=== PATIENT | female | born 1960 | race Hispanic/Latino ===

== ENCOUNTER 2017-02-18 07:02 | Day surgery (SDC) | payer MEDICAID, OTHER ==
[2017-02-18 07:02] VITALS: BMI 47.0
--- NOTE | 2017-02-18 07:48 | C.PDOC ---
History Of Present Illness 57 y/o female with Hx of kidney stones presents to ED with complaints of Left groin pain since 429 and nausea/vomiting. Patient describes pain "like my kidney stones". Patient had a Right Renal STENT placed on 02/05/[address] Palak Oswald. Home medications were taken for pain with no relief. Patient denies fever or any other complaints at this time. RECUR L GROIN PAIN SINCE 429 "LIKE MY KIDNEY STONES". HO PRIOR KIDNEY STONES, R RENAL STENT PLACED 02/05 DR Palak OSWALD. +[place]. NO RELIEF W HOME RX. NO FEVER. EXAM MOD DIST NONTOXIC ABD PT REFUSING TO LAY SUPINE FOR EXAM. OBESE SOFT NT ND NO R/G REMAINDER NEG MDM PT REPORTS TO RN MORPHINE AND DILAUDID ALLERGY BUT RX LIST SHOWS PT ON DILAUDID AND MORPHINE TABS. ALSO TAKES ULTRACET WO DIFF DESPITE REPORTING TYLENOL ALLERGY. PS NORMALLY RECEIVES BENADRYL W MORPHINE. Time Seen by Provider: 02/18/17 07:19 Chief Complaint (Nursing): Back Pain History Per: Patient History/Exam Limitations: no limitations Onset/Duration Of Symptoms: Hrs Current Symptoms Are (Timing): Still Present Past Medical History Reviewed: Historical Data, Nursing Documentation, Vital Signs Vital Signs: Last Vital Signs Temp 97.3 F L 02/18/17 13:59 Pulse 79 02/18/17 14:15 Resp 18 02/18/17 14:15 BP 115/74 02/18/17 14:15 Pulse Ox 97 02/18/17 14:15 - Medical History PMH: Anxiety, Arthritis, Asthma, Depression, Diabetes, HTN, Hypercholesterolemia , Kidney Stones (stent placement), Pneumonia, Chronic Kidney Disease - [facility] Procedures ANESTH INJEC PERIPH NERV (05/06/15) CYSTOSCOPY NEC (01/17/15) EXERCISE TRMT MUSCULOSK LOW BACK/LE W ASSIST EQUIP (07/07/16) GAIT TRAINING/AMBULAT TREATMENT USING ASSIST EQUIPMENT (07/07/16) HOME MANAGEMENT TREATMENT (07/07/16) INJECT/INFUSE NEC (08/14/13) INT FIXATION-METATAR/TAR (05/06/15) OTH ARTHROTOMY-FOOT/TOE (05/06/15) PHYSICAL THERAPY NEC (06/06/14) REMOV URETERAL DRAIN (04/29/15) ROM & JT MOBILITY TRMT MUSCULOSK WHOLE W ASSIST EQUIP (07/07/16) TENDON RECESSION (05/06/15) URETERAL CATHETERIZATION (01/17/15) Family History: States: Unknown Family Hx - Social History Hx Alcohol Use: No Hx Substance Use: No Review Of Systems Except As Marked, All Systems Reviewed And Found Negative. Constitutional: Negative for: Fever, Chills Cardiovascular: Negative for: Chest Pain Respiratory: Negative for: Shortness of Breath Gastrointestinal: Positive for: Nausea, Vomiting. Negative for: Diarrhea Genitourinary: Negative for: Dysuria Neurological: Negative for: Weakness, Headache Physical Exam - Physical Exam Appears: Non-toxic, No Acute Distress Skin: Normal Color, Warm Head: Atraumatic, Normacephalic Eye(s): bilateral: Normal Inspection, PERRL, EOMI Gastrointestinal/Abdominal: Soft, No Tenderness, No Guarding, No Rebound, Other (PT refusing to lay supine for exam, obese abdomen) Extremity: Normal ROM Neurological/Psych: Oriented x3, Normal Speech, Normal Cognition ED Course And Treatment - Laboratory Results Result Diagrams: 02/18/17 11:53 02/18/17 11:53 O2 Sat by Pulse Oximetry: 95 - CT Scan/US A/P Other Rad Studies (CT/US): Radiology Report Reviewed (4 MM STONE IN BLADDER. L HYDROUTETER. NO URETERAL CALCULUS) Progress - Re-Evaluation Re-evaluation Note: 02/18/17 08:00 D/W DR Palak OSWALD AWARE OF ER FINDINGS. REQUESTING STONE PROTOCOL CT, WILL EVAL IN ER - Data Reviewed Data Reviewed: Lab, Old records Medical Decision Making Medical Decision Making: PT REPORTS TO RN MORPHINE AND DILAUDID ALLERGY BUT RX LIST SHOWS PT ON DILAUDID AND MORPHINE TABS. ALSO TAKES ULTRACET WO DIFF DESPITE REPORTING TYLENOL ALLERGY. PS NORMALLY RECEIVES BENADRYL W MORPHINE Disposition Counseled Patient/Family Regarding: Studies Performed, Diagnosis - Disposition Disposition: HOSPITALIZED Disposition Time: 12:30 Condition: STABLE - POA Present On Arrival: None - Clinical Impression Clinical Impression: Renal colic - PA / VAMP LINER / Resident Statement / has reviewed & agrees with the documentation as recorded. MD/ has examined the patient and agrees with the treatment plan. - Scribe Statement The provider has reviewed the documentation as recorded by the Kingibpalak Serrano All medical record entries made by the Scribe were at my direction and personally dictated by me. I have reviewed the chart and agree that the record accurately reflects my personal performance of the history, physical exam, medical decision making, and the department course for this patient. I have also personally directed, reviewed, and agree with the discharge instructions and disposition.
[2017-02-18] MEDS ORDERED: DiphenhydrAMINE 50 mg/ml Inj IVP STA ×2 (07:49→14:52)
[2017-02-18] MEDS ORDERED: DiphenhydrAMINE 50 mg/ml Inj ONE ×2 (07:50→14:55)
[2017-02-18] MEDS ORDERED: Sodium Chloride 0.9% 1,000 ML ONE (07:51)
[2017-02-18] MEDS ORDERED: Morphine 4 MG/ML VIAL ONE (07:51)
[2017-02-18 08:08] LABS: RBC URINE 105 /hpf (0-3); URINE BACTERIA FEW (<OCC); URINE BILIRUBIN NEGATIVE (NEGATIVE); URINE BLOOD 3+ (NEGATIVE); URINE COLOR Yellow (YELLOW); URINE GLUCOSE (UA) 1+ mg/dL (Normal); URINE KETONE NEGATIVE (NEGATIVE); URINE LEUKOCYTE ESTERASE 3+ Leu/uL (Negative); URINE PROTEIN 2+ mg/dL (NEGATIVE); URINE UROBILINOGEN NORMAL mg/dL (0.2-1.0); WBC CLUMPS RARE /hpf; WBC URINE 145 /hpf (0-5)
--- NOTE | 2017-02-18 10:55 | CT ---
PROCEDURE: CT Abdomen and Pelvis without intravenous contrast HISTORY: L FLANK PAIN COMPARISON: None. TECHNIQUE: Technique. Contrast Dose: 0 Radiation dose: Total exam DLP = mGy-cm. This CT exam was performed using one or more of the following dose reduction techniques: Automated exposure control, adjustment of the mA and/or kV according to patient size, and/or use of iterative reconstruction technique. FINDINGS: LOWER THORAX: Unremarkable. LIVER: Unremarkable. No gross lesion or ductal dilatation. GALLBLADDER AND BILE DUCTS: Unremarkable. PANCREAS: Unremarkable. No gross lesion or ductal dilatation. SPLEEN: Unremarkable. ADRENALS: Unremarkable. No mass. KIDNEYS AND URETERS: Right kidney collecting system and ureter: Position of the double J stent catheter(s): Satisfactory multiple small calcific fragments identified primarily in the lower pole collecting system. Left kidney: Multiple small calculi fragments identified in a distended left collecting system. The left ureter is tortuous, mildly dilated. There is calculus near the left ureterovesical junction within the urinary bladder likely recently passed calculus. VASCULATURE: Unremarkable. No aortic aneurysm. BOWEL: Unremarkable. No obstruction. No gross mural thickening. APPENDIX: No abnormalities to suggest acute appendicitis. No right lower quadrant inflammatory processes identified. PERITONEUM: Unremarkable. No free fluid. No free air. LYMPH NODES: Unremarkable. No enlarged lymph nodes. BLADDER: Unremarkable. REPRODUCTIVE: Unremarkable. BONES: No acute fracture. OTHER FINDINGS: None. IMPRESSION: 1. Recently passed 4 mm calculus within the urinary bladder adjacent to the left ureterovesical junction. Left hydroureter and hydronephrosis a mildly edematous left kidney remain. 2. Bilateral upper tract calculi fragments. 3. Satisfactory position of double-J stent catheter on right.
[2017-02-18 12:03] LABS: BASO # 0.1 K/uL (0.0-0.2); BASO % 1.2 % (0.0-2.0); EOS # 0.4 K/uL (0.0-0.7); HEMATOCRIT 36.6 % (34.0-47.0); LYMPH # 1.7 K/uL (1.0-4.3); LYMPH % 14.9 % (20.0-40.0); MEAN CELL VOLUME 74.2 fL (81.0-99.0); MEAN CORPUSCULAR HEMOGLOBIN 23.3 pg (27.0-31.0); MEAN CORPUSCULAR HGB CONC 31.4 g/dL (33.0-37.0); MEAN PLATELET VOLUME 9.1 fL (7.2-11.7); MONO # 0.8 K/uL (0.0-0.8); MONO % 7.1 % (0.0-10.0); WHITE BLOOD COUNT 11.7 K/uL (4.8-10.8)
[2017-02-18] MEDS ORDERED: Gentamicin 80 mg in 0.9% NS 160 MG/200 ML BAG IVPB ONE (13:01)
[2017-02-18] MEDS ORDERED: Lactated Ringer's 1,000 ML IV ONE ×2 (13:05→13:59)
[2017-02-18] MEDS ORDERED: Midazolam 2 MG/2 ML VIAL ONE (13:09)
[2017-02-18] MEDS ORDERED: Propofol 10 mg/ml Inj (20 ML) ONE (13:10)
[2017-02-18] MEDS ORDERED: Iohexol 240 (50 ml) ONE (13:25)
[2017-02-18 13:47] LABS: ALB/GLOB RATIO 1.2 (1.0-2.1); BILIRUBIN,TOTAL 0.6 mg/dL (0.2-1.3); CALCIUM 9.1 mg/dl (8.6-10.4); TOTAL PROTEIN 6.8 g/dL (6.3-8.3)
[2017-02-18] MEDS ORDERED: HYDROmorphone 0.5 mg/0.5 ml ISec IVP PRN (14:37)
[2017-02-18] MEDS ORDERED: Lactated Ringer's 1,000 ML IV SCH (14:45)
[2017-02-18] MEDS ORDERED: Gentamicin 80 mg in 0.9% NS 80 MG/100 ML BAG IVPB ONE (15:00)
--- NOTE | 2017-02-18 15:40 | OP ---
PROCEDURE DATE: 02/18/2017 Emergency urology surgery. PREOPERATIVE DIAGNOSES: Bilateral stone disease, severe left renal colic with a distal ureteral obst ructing stone. POSTOPERATIVE DIAGNOSES: Bilateral stone disease, severe left renal colic with a distal ureteral obs tructing stone, and in fact there are 2 distal ureteral stones. PROCEDURE: Exam under anesthesia, cystoscopy, a left ureteroscopy, left stone basketing of 2 separat e stones, insertion of a left double-J stent, and removal of right double-J stent. COMPLICATIONS: None. At the termination of the procedure, the patient has a double-J stent on the left side, nothing on th e right side. ESTIMATED BLOOD LOSS: Less than 10 mL. FINDINGS: There is a stone right at the left ureteral orifice that I tried to grab out thro ugh the cystoscope with the grabbing forceps, but I could not because it was just too big and pulled back, so instead see the body of the report. What we did was we basically put a wire up, then we put a ureteroscope in and then we were able to basket it with a much better grasp on it. See the body o f the report. Essentially a relatively atraumatic procedure other than the fact that the stone is fairly impacted. INDICATIONS: See history and physical for details, an emergency surgery. The patient has right-side d stones and now she passed a left-sided stone. We knew that she had stones based on the CAT scan, b ut we could not find it by KUB. Meanwhile, while she is recovering from the right side, I have actually been speaking to the patient and she has had some diarrhea. We were trying Urocit-K. We are looking for a stone analysis. While this is going on, the patient called me today early in the morning that she is having severe le ft-sided pain. This was different than before, it turns out. I spoke to the ER and we did a CT scan and the report said that it is a stone recently passed and it is in the bladder, but in fact, now th at I have done the procedure, that reading is officially wrong. It is basically in the intramural ur eter. I explained this to the patient before and that very often it looks very similar to a passed s tone. She was having ongoing pain. I discussed options, risks, benefits and alternatives with the p atient including observation, waiting, especially given the size of the stone, but the patient was mckenzie ving so much pain, we emergency. Now that we have done the procedure, I am actually clear that this was a better mode of treatment for this patient. It was impacted and there are 2 separate stones and I do not know that she would have been successful passing it and, in fact, it made the procedure more difficult to do. DESCRIPTION OF PROCEDURE: After obtaining consent, the patient placed on the table, routine monitors placed, timeouts were called to confirm the patient and positioning. Antibiotics were difficult in this particular case given her multiple allergies, but we provided the patient with gentamicin and ac tually also giving vancomycin as well postop and I am going to be sending her home on some doxycyclin e. See the procedure itself. Cystoscope via the urethra, identified on the hr intern film. Right away, the cystoscope was introduced and I can see the yellow shiny stone at the left ureteral o rifice. I tried grabbing it because it is piercing through, but we cannot get a ancient art curator on it. Very quickly it just works its way backwards, so at this point, I waited a second and it actually cam e back into my vision. I tried again, but I really just cannot grab it successfully safely. So at thi s point, I put a wire up through the kidney. We confirmed our positioning, etc. At this point, I introduced the ureteroscope adjacent to the wire and actually the distal ureter is a little bit dilated from having that stone there. Now the stone is a little further back up. I actually negotiate the scope past the stone. There are actually 2 separate stones and then there is a little debris even higher up. I then take fluoroscopic imaging to confirm my position. My ureteroscope is intermediate up the ureter an d the stones are below me. The entire procedure was done with the camera so my conventions assistant could aid m e. I put a basket in and now we pulled down. We go for the first stone, the distal stone first. We get a good grasp on it. We are actually below the iliac vessels, but a little bit above the orifice. I get a nice grasp, a nice purchase on it and then we pulled it out while under direct vision. We on ly have the stone, we have nothing else but the stone. At this point, we looked back in, we grabbed the second stone that is sitting there. It is much smal ler and much easier. We put a double-J stent in with dancortez. I also moved the right ureteral stent. The patient tolerated procedure well without complications. Donny Oswald MD cc: [id number] TT: 02/18/2017 15:39:48 alison
--- NOTE | 2017-02-18 15:45 | HP ---
This is urology emergency admission. The patient for emergency admission with severe left renal coli c. A very pleasant lady. Please see previous notes. We had treated her for the right side. She still actually has as a Double-J stent in and actually the last couple of days, she was complaining to me o f diarrhea. I have been speaking to the patient on the phone and offered her first of all to stop th e Urocit-K as this may be a culprit, but also to get a stool sample, which she apparently has brought to the lab. Today, she called. It started to disturb, but she is having such severe left-sided pain now, which i s different than before. We brought her here to the hospital as an emergency and what we found is a left distal ureteral stone that is obstructing. The official reading, but it is incorrect actually, even as I am dictating it now, is that it is in the bladder, but actually the stone is in the ureter. I have pictures saved. See the operative report listed below. This is a urology emergency admission. I discussed various options with the patient. I hand wrote my note, but now as I am dictating my admission note, in fact the patient has 2 distal u reteral stones, 2 separate stones, one of them is right at the ureteral orifice and the othe r one is just behind it, but these were causing severe pain and they have not yet passed at all. PAST MEDICAL AND SURGICAL HISTORY: No other changes. It is all the same as before. As mentioned above, we just recently treated her right-sided stone. She has a stent and we treated her in [place]. MEDICATIONS: See chart. ALLERGIES: MULTIPLE ALLERGIES TO MORPHINE, TO CODEINE, TO PENICILLIN, BUT WHEN SHE DESCRIBES THE ALL ERGY, IT IS VERY DIFFICULT TO ASSESS THE EXACT NATURE OF THAT ALLERGY. But, we certainly did not give her that medication and apparently they had given her some morphine in the Emergency Room and she was okay. So we need to check out the evaluation about these allergies. SOCIAL HISTORY: Essentially unremarkable. PHYSICAL EXAMINATION: GENERAL: Well-nourished female, in no apparent distress. She is currently resting, but looks like s he is somewhat uncomfortable. She had recently received some pain medicine. She is here in the ER. VITAL SIGNS: Noted, within normal limits. BACK: No real CVA tenderness. ABDOMEN: Relatively soft. Not grossly distended. Her body habitus is identified. DIAGNOSIS: Bilateral stone disease. I have had a chance to look at the CAT scan. It looks like the stone is still in the intramural uret er, within the distal ureter as it enters into the bladder. I discussed options. I gave her a few choices. Option 1, based on size, it may pass, it is 4 mm in size (although it turns out it is 2 stones like this). The other option is to admit the patient and observe her and give her pain medicine. The other optio n is to send her home and give pain medicine. The other option is to proceed with a ureteroscopy. After discussing options patient, I left and gave her a chance to think about different options and s he said that she is having too much pain and it is uncomfortable and she does not want to be going ba ck and forth to the hospital. So, we are going to bring her as an emergency to the operating room and we are going to perform treat ment for the stone, at least put a stent in, maybe even remove the stone. Based on its location, it seems like maybe we will be able to, unless it is really very stuck. ADDENDUM: Subsequently, the patient also asked me, once we were in the operating room as we were teenai ng in, once I was getting consent, if I could remove the right Double-J stent, so I did this as well. See the operative note. The other is that the stone in fact was right there, swollen at the orifice and I was not ab le to grab it from the orifice. What I did do is put a wire up to the kidney, went in with a uretero scope and then see the operative report. See the body of the operative report. ADMISSION DIAGNOSES: 1. Severe left renal colic. 2. Left distal ureteral stone. 3. Hydronephrosis. 4. Bilateral stone disease. This is an emergency admission, going to the operating room as an emergency for a cystoscopy, uretero scopy, laser lithotripsy, stone basketing, etc., antibiotic prophylaxis and then further plans will f ollow. We will discuss further plans. See the body of the operative report that is separately dicta xin. I will make an addendum to this note. We basically found 2 stones in the distal ureter. We removed them both grossly intact with a stone basket. We put a Double-J stent in with dangles and we removed the right stone. See the operative report, all done here today. Donny Oswald MD cc: [id number] TT: 02/18/2017 15:45:09 en
[2017-02-18 15:49] VITALS: TEMP 97.8
[2017-02-18 16:36] VITALS: BP 95/60; PULSE 85; RESP 18; O2SAT 97
--- NOTE | 2017-02-19 11:58 | RAD ---
PROCEDURE: Intraoperative Fluoroscopy. HISTORY: LEFT STENT INSERTION/ REMOVAL RIGHT STENT FINDINGS: Fluoroscopic assistance was provided for left stent insertion, right stent removal.. Please refer to the operative report from
== END 2017-02-18 18:15 | disposition home or self-care (01) ==
LOC: C.ER 07:02 → C.SDS 07:02
PROVIDERS: ATTEND Urology
DX: N13.2 Hydronephrosis with renal and ureteral calculous obstruction (principal); Z87.442 Personal history of urinary calculi
CPT/HCPCS: 52332; 52352; 74176; 76000; 80053; 81001; 82355; 85025; 85610; 85730; 86850; 86900; 88300; 96374; J1200; J1580; J1885; J2270; J2765; J7120; Q9966

== ENCOUNTER 2017-02-26 17:40 | Emergency (ER) | payer MEDICAID, OTHER ==
[2017-02-26 17:46] VITALS: BMI 45.7
[2017-02-26 17:48] VITALS: O2SAT 96
[2017-02-26] MEDS ORDERED: Sodium Chloride 0.9% 1,000 ML IV ONE (19:52)
--- NOTE | 2017-02-26 19:52 | C.PDOC ---
History Of Present Illness 57 y/o female presents to the emergency department with complains of abdominal pain 4/10 and nausea which onset today. Pt had joint injection to right hip this morning and now has suprapubic discomfort. Pt also complaining of dysuria. Denies fever, chills, or any other complaints at this time. Time Seen by Provider: 02/26/17 19:51 Chief Complaint (Nursing): Abdominal Pain History Per: Patient History/Exam Limitations: no limitations Onset/Duration Of Symptoms: Hrs Current Symptoms Are (Timing): Still Present Severity: Moderate Location Of Pain/Discomfort: Suprapubic Radiation Of Pain To:: None Quality Of Discomfort: "Pain" Associated Symptoms: Nausea, Urinary Symptoms. denies: Fever, Chills, Vomiting , Diarrhea Exacerbating Factors: None Alleviating Factors: None Recent travel outside of the [place]: No Past Medical History Reviewed: Historical Data, Nursing Documentation, Vital Signs Vital Signs: Last Vital Signs Temp 97.9 F 02/26/17 17:46 Pulse 83 02/26/17 17:46 Resp 20 02/26/17 17:46 BP 134/90 02/26/17 17:46 Pulse Ox 96 02/26/17 23:09 - Medical History PMH: Anxiety, Arthritis, Asthma, Depression, Diabetes, HTN, Hypercholesterolemia , Kidney Stones (stent placement), Pneumonia, Chronic Kidney Disease - [facility] Procedures ANESTH INJEC PERIPH NERV (05/06/15) CYSTOSCOPY NEC (01/17/15) EXERCISE TRMT MUSCULOSK LOW BACK/LE W ASSIST EQUIP (07/07/16) GAIT TRAINING/AMBULAT TREATMENT USING ASSIST EQUIPMENT (07/07/16) HOME MANAGEMENT TREATMENT (07/07/16) INJECT/INFUSE NEC (08/14/13) INT FIXATION-METATAR/TAR (05/06/15) OTH ARTHROTOMY-FOOT/TOE (05/06/15) PHYSICAL THERAPY NEC (06/06/14) REMOV URETERAL DRAIN (04/29/15) ROM & JT MOBILITY TRMT MUSCULOSK WHOLE W ASSIST EQUIP (07/07/16) TENDON RECESSION (05/06/15) URETERAL CATHETERIZATION (01/17/15) Family History: States: Unknown Family Hx - Social History Hx Alcohol Use: No Hx Substance Use: No - Immunization History Hx Tetanus Toxoid Vaccination: No Hx Influenza Vaccination: Yes Hx Pneumococcal Vaccination: Yes Review Of Systems Constitutional: Negative for: Fever, Chills Gastrointestinal: Positive for: Nausea, Abdominal Pain. Negative for: Vomiting Genitourinary: Positive for: Dysuria. Negative for: Hematuria Physical Exam - Physical Exam Appears: Non-toxic, No Acute Distress, Other (morbidly obese) Skin: Warm, Dry, No Rash Head: Atraumatic, Normacephalic Neck: Supple Chest: Symmetrical, No Tenderness Cardiovascular: Rhythm Regular, No Murmur Respiratory: No Accessory Muscle Use, No Rales, No Rhonchi, No Wheezing Gastrointestinal/Abdominal: Soft, No Tenderness, No Guarding, No Rebound Extremity: Bilateral: Atraumatic Neurological/Psych: Oriented x3, Normal Speech ED Course And Treatment - Laboratory Results Result Diagrams: 02/26/17 20:25 02/26/17 20:25 O2 Sat by Pulse Oximetry: 96 (room air) Pulse Ox Interpretation: Normal Progress Note: Plan: Plan: labs, UA, IV fluids, Reevaluation Time: 23:12 Reassessment Condition: Improved Medical Decision Making Medical Decision Making: Upon provider reevaluation patient is feeling better, is medically stable, and requires no further treatment in the ED at this time. Patient will be discharged home with Rx for metronidazole cream . Counseling was provided and all questions were answered regarding diagnosis and need for follow up with dr oswald and dr bueno. There is agreement to discharge plan. Return if symptoms persist or worsen. Disposition Counseled Patient/Family Regarding: Studies Performed, Diagnosis, Need For Followup, Rx Given - Disposition Referrals: Jessica Oswald MD [Staff Provider] - Avel Bueno MD [Medical Doctor] - Disposition Time: 19:51 Condition: FAIR Prescriptions: metroNIDAZOLE 0.75% [Metrogel Cream] 45 gm EXT BID #1 tube traMADol [Ultram] 50 mg PO TID PRN #12 tab PRN Reason: Pain, Severe (8-10) Instructions: Abdominal Pain (ED) - Clinical Impression Clinical Impression: Abdominal pain - Scribe Statement The provider has reviewed the documentation as recorded by the Scribe Rashad Almaguer Provider Attestation: All medical record entries made by the Scribe were at my direction and personally dictated by me. I have reviewed the chart and agree that the record accurately reflects my personal performance of the history, physical exam, medical decision making, and the department course for this patient. I have also personally directed, reviewed, and agree with the discharge instructions and disposition.
[2017-02-26 20:30] LABS: BASO # 0.1 K/uL (0.0-0.2); BASO % 0.7 % (0.0-2.0); EOS % 0.1 % (0.0-4.0); HEMATOCRIT 36.2 % (34.0-47.0); LYMPH # 1.3 K/uL (1.0-4.3); LYMPH % 12.8 % (20.0-40.0); MEAN CELL VOLUME 73.8 fL (81.0-99.0); MEAN CORPUSCULAR HEMOGLOBIN 23.6 pg (27.0-31.0); MEAN CORPUSCULAR HGB CONC 31.9 g/dL (33.0-37.0); MONO # 0.1 K/uL (0.0-0.8); MONO % 1.3 % (0.0-10.0); RED CELL DISTRIBUTION WIDTH 16.8 % (11.5-14.5); WHITE BLOOD COUNT 10.3 K/uL (4.8-10.8)
[2017-02-26 20:37] LABS: RBC URINE 3 /hpf (0-3); RENAL EPITHELIAL < 1 /hpf (0-3); URINE BACTERIA OCC (<OCC); URINE BILIRUBIN NEGATIVE (NEGATIVE); URINE BLOOD NEGATIVE (NEGATIVE); URINE COLOR Yellow (YELLOW); URINE GLUCOSE (UA) NORMAL (Normal); URINE KETONE NEGATIVE (NEGATIVE); URINE LEUKOCYTE ESTERASE TRACE Leu/uL (Negative); URINE PROTEIN NEGATIVE (NEGATIVE); URINE URIC ACID CRYSTALS MOD /hpf (<OCC); URINE UROBILINOGEN NORMAL mg/dL (0.2-1.0); WBC URINE 9 /hpf (0-5)
[2017-02-26 20:38] LABS: POTASSIUM 4.5 mmol/L (3.6-5.2)
[2017-02-26 20:40] LABS: ALB/GLOB RATIO 1.2 (1.0-2.1); BILIRUBIN,TOTAL 0.8 mg/dL (0.2-1.3); CALCIUM 8.8 mg/dl (8.6-10.4); TOTAL PROTEIN 7.3 g/dL (6.3-8.3)
[2017-02-26] MEDS ORDERED: DiphenhydrAMINE 50 mg/ml Inj IVP STA (21:18)
[2017-02-26] MEDS ORDERED: DiphenhydrAMINE 50 mg/ml Inj ONE (22:00)
[2017-02-26] MEDS ORDERED: Morphine 4 MG/ML VIAL ONE (22:00)
[2017-02-26 23:27] VITALS: BP 158/85; PULSE 72; RESP 14; TEMP 97.7
== END 2017-02-26 23:29 | disposition home or self-care (01) ==
LOC: C.ER 17:40
DX: R10.30 Lower abdominal pain, unspecified (principal)
CPT/HCPCS: 80053; 81001; 82365; 83690; 84703; 85025; 85610; 85730; 88300; 96361; 96374; 96375; 99284; J1200; J2270; J7040

== ENCOUNTER 2017-04-02 01:21 | Emergency (ER) | payer MEDICAID ==
[2017-04-02 01:22] VITALS: BMI 45.7
[2017-04-02 01:41] VITALS: O2SAT 95
[2017-04-02] MEDS ORDERED: Sodium Chloride 0.9% 1,000 ML IV ONE (01:54)
[2017-04-02] MEDS ORDERED: Sodium Chloride 0.9% 1,000 ML ONE (02:08)
[2017-04-02 02:14] LABS: BASO # 0.1 K/uL (0.0-0.2); BASO % 1.2 % (0.0-2.0); EOS # 0.5 K/uL (0.0-0.7); EOS % 5.6 % (0.0-4.0); HEMOGLOBIN 10.9 g/dL (11.0-16.0); LYMPH # 2.5 K/uL (1.0-4.3); LYMPH % 30.7 % (20.0-40.0); MEAN CORPUSCULAR HEMOGLOBIN 23.6 pg (27.0-31.0); MEAN CORPUSCULAR HGB CONC 31.5 g/dL (33.0-37.0); MEAN PLATELET VOLUME 9.1 fL (7.2-11.7); MONO # 0.5 K/uL (0.0-0.8); NEUT # 4.6 K/uL (1.8-7.0); NEUT % 56.5 % (50.0-75.0); RBC 4.64 Mil/uL (3.80-5.20); RED CELL DISTRIBUTION WIDTH 17.1 % (11.5-14.5); WHITE BLOOD COUNT 8.2 K/uL (4.8-10.8)
[2017-04-02 02:26] LABS: ALBUMIN 3.3 g/dL (3.5-5.0)
[2017-04-02 02:29] LABS: ALB/GLOB RATIO 1.1 (1.0-2.1)
[2017-04-02 02:30] LABS: CALCIUM 9.1 mg/dl (8.6-10.4)
--- NOTE | 2017-04-02 02:42 | C.PDOC ---
History Of Present Illness 57 year old female with a Hx of chronic back pain and renal stones who presents to the ER with a complaint of right flank pain. Patient reports she had a right ureteral stent that was placed by Dr. Oswald and recently removed. She frequently passes small painful renal calculi (brought a small container to demonstrate) . She states she has tramadol at home and claims she has not taken any today. [facility], patient had a refill of tramadol on 02/04 and another on the 03/08 in our ER. Patient states she does not know why the pain is worse today. Denies urinary symptoms or abdominal pain. Time Seen by Provider: 04/02/17 01:42 Chief Complaint (Nursing): Back Pain History Per: Patient History/Exam Limitations: no limitations Onset/Duration Of Symptoms: Days Current Symptoms Are (Timing): Still Present Quality Of Discomfort: Unable To Describe Previous Symptoms: Back Pain Associated Symptoms: None Exacerbating Factor(s): Nothing Recent travel outside of the [place]: No Past Medical History Reviewed: Historical Data, Nursing Documentation, Vital Signs Vital Signs: Last Vital Signs Temp 97.8 F 04/02/17 03:56 Pulse 82 04/02/17 03:56 Resp 20 04/02/17 03:56 BP 135/78 04/02/17 03:56 Pulse Ox 95 04/02/17 03:57 - Medical History PMH: Anxiety, Arthritis, Asthma, Depression, Diabetes, HTN, Hypercholesterolemia , Kidney Stones (stent placement), Pneumonia, Chronic Kidney Disease - [facility] Procedures ANESTH INJEC PERIPH NERV (05/06/15) CYSTOSCOPY NEC (01/17/15) EXERCISE TRMT MUSCULOSK LOW BACK/LE W ASSIST EQUIP (07/07/16) GAIT TRAINING/AMBULAT TREATMENT USING ASSIST EQUIPMENT (07/07/16) HOME MANAGEMENT TREATMENT (07/07/16) INJECT/INFUSE NEC (08/14/13) INT FIXATION-METATAR/TAR (05/06/15) OTH ARTHROTOMY-FOOT/TOE (05/06/15) PHYSICAL THERAPY NEC (06/06/14) REMOV URETERAL DRAIN (04/29/15) ROM & JT MOBILITY TRMT MUSCULOSK WHOLE W ASSIST EQUIP (07/07/16) TENDON RECESSION (05/06/15) URETERAL CATHETERIZATION (01/17/15) Family History: States: Unknown Family Hx - Social History Hx Alcohol Use: No Hx Substance Use: No - Immunization History Hx Tetanus Toxoid Vaccination: No Hx Influenza Vaccination: Yes Hx Pneumococcal Vaccination: Yes Review Of Systems Gastrointestinal: Negative for: Abdominal Pain Genitourinary: Negative for: Dysuria, Incontinence, Hematuria Musculoskeletal: Positive for: Back Pain Physical Exam - Physical Exam Appears: Non-toxic, No Acute Distress Skin: Normal Color, Warm, Dry Head: Atraumatic, Normacephalic Oral Mucosa: Moist Chest: Symmetrical, No Tenderness Cardiovascular: Rhythm Regular, No Murmur Respiratory: Normal Breath Sounds, No Rales, No Rhonchi, No Wheezing Gastrointestinal/Abdominal: Soft, No Tenderness Neurological/Psych: Oriented x3, Normal Speech, Normal Cognition ED Course And Treatment - Laboratory Results Result Diagrams: 04/02/17 02:11 04/02/17 02:11 Lab Interpretation: Normal (UA neg , 14 WBC, 4 RBC's) O2 Sat by Pulse Oximetry: 95 (Room air) Pulse Ox Interpretation: Normal Progress Note: Toradol and IV fluid administered. Reevaluation Time: 02:55 (asleep) Reassessment Condition: Improved Medical Decision Making Medical Decision Making: chronic back pain ? related to renal or other odd presentation Why not taking Tramadol @ home if she has it to take? [place] reviewed- 7 prescribers for 19 Rx's, related to chronic issues. pt is texting Dr. Donny Oswald during her ED visit- so he is aware of eval and findings [id number]: chronic back pain, pt comfortable through entire ED visit- asleep after toradol May follow-up with Dr. Steve Oswald as opt. Recent Tramadol refill from our ER- explained Ed may not refill chronic controlled substances. Disposition Doctor Will See Patient In The: Office Counseled Patient/Family Regarding: Studies Performed, Diagnosis - Disposition Referrals: Bernard Oswald MD [Staff Provider] - Disposition: HOME/ ROUTINE Disposition Time: 03:48 Condition: GOOD Additional Instructions: continue your normal chronic pain regimen Follow-up with Dr. Steve Oswald Chronic controlled substances may NOT be refilled by the ED. Instructions: Chronic Back Pain (ED) - Clinical Impression Clinical Impression: Chronic back pain - Scribe Statement The provider has reviewed the documentation as recorded by the Scribe Femi Howell All medical record entries made by the Scribe were at my direction and personally dictated by me. I have reviewed the chart and agree that the record accurately reflects my personal performance of the history, physical exam, medical decision making, and the department course for this patient. I have also personally directed, reviewed, and agree with the discharge instructions and disposition.
--- NOTE | 2017-04-02 03:15 | CT ---
EXAM: CT Abdomen and Pelvis Without Intravenous Contrast CLINICAL HISTORY: 57 years old, female; Pain; Abdominal pain; Patient HX: 5-25-17; Additional info: ? Renal colic, r stent TECHNIQUE: Axial computed tomography images of the abdomen and pelvis without intravenous contrast. This CT exam was performed using one or more of the following dose reduction techniques: automated exposure control, adjustment of the mA and/or kV according to patient size, and/or use of iterative reconstruction technique. Coronal and sagittal reformatted images were created and reviewed. COMPARISON: [facility] - DENSITOMETRY HIP SPINE 09/13/2015 3:07:00 PM FINDINGS: Lower thorax: 4 millimeter nodule in the right base on series 2, image 14. 3-4 mm subpleural nodule in the left base on series 2, image 14. There is minimal bibasilar atelectasis. ABDOMEN: Liver: There are no focal liver lesions present. Gallbladder and bile ducts: The gallbladder is contracted but otherwise normal. No calcified stones. No ductal dilation. Pancreas: Pancreas is significantly fatty replaced. No ductal dilation. Spleen: The spleen is normal. Adrenals: The adrenal glands are normal. Kidneys and ureters: The kidneys are normal aside from nonobstructing calculi bilaterally. No obstructing stones. No hydronephrosis. Stomach and bowel: The stomach is normal. Colonic constipation is present. There is no evidence of intestinal obstruction. No mucosal thickening. Appendix: A normal appendix is identified. PELVIS: Bladder: Bladder is decompressed. No stones. Reproductive: There has been a hysterectomy. ABDOMEN and PELVIS: Intraperitoneal space: There is no evidence of free intraperitoneal fluid. There is no free intraperitoneal air. Bones/joints: There are moderate degenerative changes present. There is moderate diffuse osteopenia. No acute fracture. No dislocation. Soft tissues: Unremarkable. Vasculature: The aorta demonstrates mild atherosclerotic calcification. No abdominal aortic aneurysm. Lymph nodes: There is no evidence of lymphadenopathy. IMPRESSION: 1. 4 millimeter nodule in the right base on series 2, image 14. 3-4 mm subpleural nodule in the left base on series 2, image 14. ACR White Paper guidelines (Meena, et al. Radiology) suggest the following. For low-risk patients, no follow-up is necessary. For high-risk patients (smoking history or other known risk factors) an optional CT at 12 months could be performed. 2. No evidence for obstructive uropathy. 3. Additional incidental and/or chronic findings as described.
[2017-04-02 03:43] LABS: SQUAMOUS EPITHIAL 4 /hpf (0-5); URINE BACTERIA RARE (<OCC); URINE BILIRUBIN NEGATIVE (NEGATIVE); URINE BLOOD NEGATIVE (NEGATIVE); URINE CLARITY Clear (Clear); URINE COLOR Yellow (YELLOW); URINE GLUCOSE (UA) NORMAL (Normal); URINE LEUKOCYTE ESTERASE 2+ Leu/uL (Negative); URINE NITRATE NEGATIVE (NEGATIVE); URINE PROTEIN NEGATIVE (NEGATIVE); URINE UROBILINOGEN NORMAL mg/dL (0.2-1.0)
[2017-04-02 04:04] VITALS: BP 135/78; PULSE 82; RESP 20; TEMP 97.8
== END 2017-04-02 04:03 | disposition home or self-care (01) ==
LOC: C.ER 01:21
DX: G89.29 Other chronic pain (principal); M54.9 Dorsalgia, unspecified
CPT/HCPCS: 74176; 80053; 81001; 83690; 85025; 96361; 96374; 99285; J1885; J7040

== ENCOUNTER 2018-12-08 09:10 | Outpatient (CLI) | payer MEDICAID | END 2018-12-08 09:11 | disposition home or self-care (01) | LOC: C.MRIC 09:11 | DX: G43.101 Migraine with aura, not intractable, with status migrainosus (principal) ==